=== PATIENT | female | born 1965 ===

== ENCOUNTER 2020-04-19 15:56 | Day surgery (SDC) | payer BC ==
[~2020-04-19] VITALS: Ht 170.2 cm; Wt 87.6 kg
[2020-04-19 16:32] VITALS: BP 169/88; PULSE 84; TEMP 99.1
[2020-04-19] MEDS ORDERED: PERCOCET 325 MG1 TA2 PO (16:37)
[2020-04-19] MEDS ORDERED: NORCO 325 MG-51 TAB PO (16:37)
[2020-04-19] MEDS ORDERED: TOPAMAX50 MG PO (16:38)
[2020-04-19] MEDS ORDERED: PYRIDIUM 100MG100 MG PO (17:37)
[2020-04-19 18:16] VITALS: TEMP 98.2
[2020-04-19 18:45] VITALS: BP 152/87; PULSE 65
[2020-04-19 19:00] VITALS: BP 138/80; PULSE 63
[2020-04-19 19:15] VITALS: BP 142/70; PULSE 57
[2020-04-19 19:30] VITALS: BP 137/77; PULSE 68
== END 2020-04-19 20:00 | disposition home or self-care (01) ==
LOC: SDCO → SURG 18:45 → SDCO 20:00
DX: N20.1 Calculus of ureter (principal); U07.1 COVID-19; Z88.0 Allergy status to penicillin; Z88.5 Allergy status to narcotic agent; Z88.8 Allergy status to other drugs, medicaments and biological substances
CPT/HCPCS: OP; C1769; C1894; C2617; J0690; J1100; J1885; J2405; J2704; J3010; J7120; Q9967